=== PATIENT | female | born 1980 | race African-American/Black ===

== ENCOUNTER 2020-07-27 23:15 | Emergency (ER) | payer SELFPAY ==
[~2020-07-27] VITALS: Ht 170.2 cm; Wt 104.3 kg
[2020-07-28] MEDS ORDERED: methylPREDNISolone SOD SUCC 125 MG/2 ML VL IV ONE (05:00)
[2020-07-28] MEDS ORDERED: IPRATROPIUM BROM 0.5 MG/2.5ML INH SOL NEB ONE ×2 (05:00→07:15)
[2020-07-28] MEDS ORDERED: SODIUM CHLORIDE 0.9% 1,000 ML IV ONE (05:00)
[2020-07-28] MEDS ORDERED: ALBUTEROL SULF 2.5 MG/0.5ML(0.5%) NEB SOLN NEB ONE ×2 (05:00→07:15)
[2020-07-28 05:12] LABS: Urine Bacteria FEW /hpf (None Seen); Urine Blood Negative /uL (Negative); Urine Specific Gravity 1.005 (1.001-1.035); Urine WBC <1 /hpf (0 - 5)
[2020-07-28] MEDS ORDERED: ACETAMINOPHEN 325 MG TAB PO ONE (07:45)
[2020-07-28 07:47] VITALS: BP 112/53
== END 2020-07-28 10:04 | disposition home or self-care (01) ==
LOC: EDBD 23:15 → ER 23:15
DX: J45.998 Other asthma (principal); J01.00 Acute maxillary sinusitis, unspecified
CPT/HCPCS: 71045; 81001; 94640; 96374; 99285; J2930; J7030; J7644

== ENCOUNTER 2023-03-31 10:14 | Emergency (ER) | payer SELFPAY ==
[~2023-03-31] VITALS: Ht 175.3 cm; Wt 118.1 kg
[2023-03-31 11:02] LABS: Basophils # (auto) 0 10 ^3/uL (0-0.2); Basophils % (auto) 0.6 % (0.0-2.0); Eosinophils # (auto) 0.6 10 ^3/uL (0-0.8); Eosinophils % (auto) 8.8 % (0.0-7.0); Hematocrit 35.7 % (36.0-46.0); Hemoglobin 11.4 g/dL (12.2-16.2); Lymphocytes # (auto) 1.6 10 ^3/uL (0.4-5.4); Lymphocytes % (auto) 22.5 % (10.0-50.0); Mean Corpuscular Hemoglobin 24.6 pg (28.0-32.0); Mean Corpuscular Hgb Conc. 32.1 g/dL (32.0-36.0); Mean Corpuscular Volume 76.8 fL (80.0-100.0); Monocytes # (auto) 0.4 10 ^3/uL (0-1.3); Monocytes % (auto) 5.2 % (0.0-12.0); Neutrophils # (auto) 4.4 10 ^3/uL (1.6-8.6); Neutrophils % (auto) 62.9 % (37.0-80.0); Red Blood Cells 4.65 10^6/uL (4.0-5.20); Red Cell Distribution Width 15.9 % (11.8-14.3)
[2023-03-31 11:28] LABS: Albumin 2.9 g/dL (3.4-5.0); BUN/Creatinine Ratio 14.4 (10.0-20.0); Bilirubin, Total 0.3 mg/dL (0.2-1.0); Calcium 8.6 mg/dL (8.5-10.1); Total Protein 6.8 g/dL (6.4-8.2)
[2023-03-31 11:50] LABS: INR 1.02 (0.9-1.15); Partial Thromboplastin Time 26.5 SEC (24.5-34.5)
[2023-03-31 12:59] LABS: Urine Bacteria NONE SEEN /hpf (None Seen); Urine Blood 3+ /uL (Negative); Urine WBC 682 /hpf (0 - 5); Urine WBC Clumps PRESENT /hpf (None Seen)
[2023-03-31] MEDS ORDERED: MEDR5TAB28 PO (13:27)
[2023-03-31] MEDS ORDERED: NITR-87 PO (13:27)
[2023-03-31] MEDS ORDERED: medroxyPROGESTERone ACETATE 5 MG TAB PO ONE (13:30)
[2023-03-31] MEDS ORDERED: cefTRIAXone SOD 1,000 MG VL IM ONE (13:30)
[2023-03-31 14:00] VITALS: BP 120/79
== END 2023-03-31 14:26 | disposition home or self-care (01) ==
LOC: ER 10:14
DX: D25.9 Leiomyoma of uterus, unspecified (principal); R73.9 Hyperglycemia, unspecified; N39.0 Urinary tract infection, site not specified; J45.909 Unspecified asthma, uncomplicated; R10.2 Pelvic and perineal pain
CPT/HCPCS: 36415; 76830; 76856; 80053; 81001; 84702; 85025; 85610; 85730; 96372; 99285; J0696

== ENCOUNTER 2023-06-12 06:06 | Emergency (ER) | payer MEDICAID, OTHER ==
[~2023-06-12] VITALS: Ht 175.3 cm; Wt 109.0 kg
[~2023-06-12 06:06] MED LIST: MEDR5TAB28 PO; NITR-87 PO
[2023-06-12] MEDS ORDERED: ALBUTEROL SULF 2.5 MG/0.5ML(0.5%) NEB SOLN NEB ONE ×2 (06:30→07:00)
[2023-06-12] MEDS ORDERED: IPRATROPIUM BROM 0.5 MG/2.5ML INH SOL NEB ONE ×2 (06:30→07:00)
[2023-06-12 06:39] VITALS: BP 123/66; PULSE 85; TEMP 97.7
[2023-06-12] MEDS ORDERED: methylPREDNISolone SOD SUCC 40 MG/ML VL IM ONE (07:00)
[2023-06-12 07:06] VITALS: RESP 18; O2SAT 100
[2023-06-12] MEDS ORDERED: ALBU108A5 IN (07:29)
[2023-06-12] MEDS ORDERED: ALB5IS NEB (07:29)
[2023-06-12] MEDS ORDERED: PRED20TA2 PO (07:29)
== END 2023-06-12 07:33 | disposition home or self-care (01) ==
LOC: ER 06:06
DX: J45.901 Unspecified asthma with (acute) exacerbation (principal)
CPT/HCPCS: 94640; 96372; 99284; J2920; J7644